=== PATIENT | male | born 1965 | race Caucasian/White ===

== ENCOUNTER → 2019-10-11 | Outpatient (CLI) | payer BC ==
[~2019-10-11] VITALS: Ht 175.3 cm; Wt 77.1 kg
[2019-10-11 09:35] VITALS: BP 148/82
[2019-10-11 11:28] VITALS: BP 160/83
[2019-10-11 11:33] VITALS: BP 161/88
[2019-10-11 11:42] VITALS: BP 160/96
[2019-10-11 11:47] VITALS: BP 166/83
[2019-10-11 11:59] VITALS: BP 118/80
--- NOTE | 2019-10-11 12:35 | NUR ---
DR MILLAN HERE TO SPEAK TO PT AND SPOUSE PER PT REQUEST.
== END | disposition home or self-care (01) ==
LOC: CAT 07:55
DX: M71.38 Other bursal cyst, other site (principal); M47.26 Other spondylosis with radiculopathy, lumbar region; M54.5 Low back pain; G89.29 Other chronic pain